=== PATIENT | female | born 1975 | race Caucasian/White ===

== ENCOUNTER 2019-07-02 22:09 | Emergency (ER) | payer OTHER ==
[~2019-07-02] VITALS: Ht 162.6 cm; Wt 59.4 kg
[~2019-07-02 22:09] MED LIST: CEFTIN250 MG PO
[2019-07-03] MEDS ORDERED: BUTALBIT-ACETA1 EACH PO (02:31)
== END 2019-07-03 02:40 | disposition home or self-care (01) ==
LOC: ER 22:09
DX: R51 Headache (principal)

== ENCOUNTER → 2021-08-11 | Emergency (ER) | payer OTHER ==
[~2021-08-11] VITALS: Ht 162.6 cm; Wt 59.0 kg
[~2021-08-11] MED LIST changes: +BUTALBIT-ACETA1 EACH PO
== END | disposition home or self-care (01) ==
LOC: ER 18:48
DX: S91.332A Puncture wound without foreign body, left foot, initial encounter (principal); X58.XXXA Exposure to other specified factors, initial encounter; Y92.9 Unspecified place or not applicable

== ENCOUNTER 2022-02-22 22:19 | Emergency (ER) | payer OTHER ==
[~2022-02-22] VITALS: Ht 162.6 cm; Wt 62.6 kg
[2022-02-23] MEDS ORDERED: DICLOFENAC SODI75 MG PO (00:46)
== END 2022-02-23 01:08 | disposition home or self-care (01) ==
LOC: ER 22:19
DX: M25.512 Pain in left shoulder (principal); M79.622 Pain in left upper arm; M25.812 Other specified joint disorders, left shoulder; M75.32 Calcific tendinitis of left shoulder